=== PATIENT | male | born 1980 | race Caucasian/White ===

== ENCOUNTER 2025-03-20 16:13 | Emergency (ER) | payer OTHER, SELFPAY ==
--- NOTE | 2025-03-20 16:14 | ED.URI ---
HPI - URI/Sore Throat General Chief Complaint: Upper Respiratory Infection Stated Complaint: Cold Like Time Seen by Provider: 03/20/25 16:13 Source: patient Mode of arrival: ambulatory Limitations: no limitations History of Present Illness HPI Narrative: Laurent is a 44-year-old male patient presenting to the clinic today with complaints of cold symptoms for over 1 week. He reports he had a nose bleed in the right near this morning and that has resolved. Is blowing out coughing up green purulent drainage. Denies any shortness of breath or chest pain. No history of asthma. Does report a slight sore throat with drainage going in the back of his throat. Related Data Allergies Allergy/AdvReac Type Severity Reaction Status Date / Time No Known Allergies Allergy Verified 03/20/25 16:14 Review of Systems Review of Systems: Pertinent positives per HPI. Patient denies any fever, chills, rash, visual changes, dizziness, shortness of breath, chest pain, palpitations, nausea, vomiting, diarrhea, constipation, abdominal pain, or any urinary issues. REPLACED BY [facility] Past Medical History Medical History (Updated 03/20/25 @ 16:25 by Nate Del Castillo APRN) Hypertension Hyperlipidemia Surgical History Surgical History H/O vasectomy History of arthroscopy of both knees Family History Family History Grandparent Diabetes mellitus Hypertension Family history of cardiovascular disease Family history of dementia Father Hypertension Family history of elevated blood lipids Social History Social History Social History: 10/23/24 somewhat confident with medical forms Smoking status: Former smoker Smoking end date: 10/03/04 Alcohol intake: current Drinks per week: 2 Substance use: never Do You Feel Safe in your Home?: Yes Lack of Transportation: YES Lack of Food: Never True Current Housing: I Have Housing Concerned About Future Housing: No Difficulty Paying Gas/Electric Bills: No Difficulty Paying for Meds: No Currently Unemployed: No Education: Trade/Vocational Certificate Difficulty w/ Childcare or Family Care: No Living arrangements: with family Occupation/Education: occupation Gender identity (if verbalized by the patient): Male Spiritual care concerns: No Agree to blood products: Yes Comments At the time of my signature, I reviewed and agree with the nursing past medical, surgical, social, and family history. There is no relevant family history pertinent to the patient complaint. Exam Narrative: General: Well-developed, morbidly obese, in no apparent distress Head: Normocephalic, atraumatic Eyes: Pupils equally round and reactive to light bilaterally, EOM intact, sclera and conjunctive clear, no discharge, lids normal Ears: TMs intact and congested, ear canals clear, no drainage, grossly hearing normal. Nose: Nares patent, green nasal drainage with dry blood in the right nare, moderate inflammation, maxillary and frontal sinus tenderness. Mouth: Oral pharynx without lesions or masses, good dentition, MMM. Neck: Supple, trachea midline, no enlargement of anterior or posterior cervical nodes, no thyroid masses or goiter palpable. Cardio: Regular rate and rhythm, s1 and s2 normal, no murmur appreciated. Resp: Expiratory wheezing on the left upper and lower lobe, no rhonchi, rales, or rubs Course Course Emergency Course: Portions of this record may have been created with voice recognition software. Level of Care: Express Care Visit Vital Signs Vital signs: Vital Signs Temperature 35.8 C L 03/20/25 16:20 Pulse Rate 104 H 03/20/25 16:20 Respiratory Rate 16 03/20/25 16:20 Blood Pressure 149/95 H 03/20/25 16:20 Pulse Oximetry 95 03/20/25 16:20 Oxygen Delivery Room Air 03/20/25 16:20 Temperature 35.8 C L 03/20/25 16:20 Pulse Rate 104 H 03/20/25 16:20 Respiratory Rate 16 03/20/25 16:20 Blood Pressure 149/95 H 03/20/25 16:20 Pulse Oximetry 95 03/20/25 16:20 Oxygen Delivery Room Air 03/20/25 16:20 Vital signs reviewed MDM - URI/Sore Throat MDM Narrative Medical decision making narrative: At the time of visit patient is resting comfortably on the exam table. Patient appears to be nontoxic. Plan: I suspect patient has rhino sinusitis/bronchitis. Prescription for Augmentin, prednisone, and albuterol inhaler was sent to the pharmacy. Supportive measures were discussed with the patient and they voiced understanding discharge instructions and agrees to treatment plan. Return precautions reviewed Differential Diagnosis Differential diagnosis: Likely upper respiratory infection, otitis media, sinusitis, viral infection, bronchitis, influenza, pharyngitis and other (COVID) Discharge Plan Discharge Clinical Impression: Sinobronchitis Patient Disposition: Home Condition: Stable Instructions: Antibiotic Form, Acute Bronchitis (ED), Rhinosinusitis (ED) Additional Instructions: Take prescription medications only as prescribed-albuterol inhaler, prednisone, and Augmentin. Increase fluids and stay well hydrated Tylenol/motrin for pain/fever Flonase and OTC antihistamines as directed Vicks vapor rub to open sinuses Sinus rinses for congestion Cepacol spray, cough drops, throat lozenges, warm tea with honey/lemon, gargle salt water to soothe throat BRAT diet for diarrhea Clear liquids x 24 hours then advance as tolerated for nausea/vomiting Go to the ED if you develop a worsening in your condition- high fever not controlled by Tylenol or Motrin, dehydration, weakness, lethargy, shortness of breath, or chest pain. Follow up with your PCP in 3-5 days if symptoms persist. Patient Language: [place] Island[place] Prescriptions: New prednisone 20 mg tablet 40 mg PO DAILY 5 Days Qty: 10 0RF albuterol sulfate 90 mcg/actuation HFA aerosol inhaler 2 puff inhalation Q4-6H PRN (Reason: shortness of breath or wheezing) 30 Days Qty: 8.5 0RF amoxicillin-pot clavulanate 875-125 mg tablet 1 tablet PO Q12H 7 Days Qty: 14 0RF No Action metformin [Glucophage XR] 500 mg tablet extended release 24 hr 500 mg PO DAILY Qty: 90 0RF rosuvastatin [Crestor] 5 mg tablet 5 mg PO DAILY Qty: 90 0RF lisinopril 40 mg tablet 40 mg PO DAILY Qty: 90 0RF Follow-up/Referrals: Ling Ortiz APN-C [Primary Care Provider] - Time of Disposition: 16:25 Quality NIHSS Nursing Documentation ED NIHSS nursing documentation: reviewed/agree
[2025-03-20 16:20] VITALS: BP 149/95; PULSE 104; RESP 16; TEMP 35.8; O2SAT 95
== END 2025-03-20 16:27 | disposition home or self-care (01) ==
PROVIDERS: Emergency Provider Nurse Practitioner Family; PCP Nurse Practitioner Family
DX: J32.9 Chronic sinusitis, unspecified (principal); J40 Bronchitis, not specified as acute or chronic; Z87.891 Personal history of nicotine dependence; I10 Essential (primary) hypertension; E78.5 Hyperlipidemia, unspecified
CPT/HCPCS: 99213; G0463